=== PATIENT | male | born 1955 | race Caucasian/White ===

== ENCOUNTER 2020-01-25 21:11 | Emergency (ER) | payer BC ==
[2020-01-25] MEDS ORDERED: Adacel Vial IM ONE ×2 (21:52→22:02)
[2020-01-25] MEDS ORDERED: PERCOCET TABLET 5/325MG PO STA (21:52)
--- NOTE | 2020-01-25 21:55 | ERPHSYRPT ---
- History of Present Illness Time Seen by Provider: 01/25/20 21:31 Source: patient Exam Limitations: no limitations Patient Subjective Stated Complaint: pt states while he was mowing today, something flew out from under the mower and hit the side of his rt leg. states he was wearing long pants and did not go through his pants. states he is unable to bear weight on that leg Triage Nursing Assessment: pt alert and oriented, answers questions approp. pt back per wheelchair, transfers to stretcher per self with no weight bearing to rt leg. skin pink warm and dry. small open area with tenderness noted to rt lower leg. Physician History: 64 years old male presented in the ER with chief complaint of right lower leg injury while he was mowing the yard and something flew out and hit on the right lower leg laterally causing a small puncture this evening. Since then he is having difficulty weightbearing and pain is gradually worsening, moderate to severe intensity, sharp shooting in nature and aggravated with movements at right ankle and palpation. Denies injury anywhere else. Unsure about tetanus status. Method of Injury: direct blow Occurred: this evening Quality: constant Severity of Pain-Max: moderate Severity of Pain-Current: moderate Lower Extremities Pain: leg: right Modifying Factors: Improves With: movement Allergies/Adverse Reactions: No Known Drug Allergies Allergy (Verified 01/25/20 21:39) Home Medications: Metoprolol Tartrate 25 mg [Lopressor 25MG Tab] 25 mg PO BID 01/25/20 [ History] Hx Tetanus, Diphtheria Vaccination/Date Given: No Hx Influenza Vaccination/Date Given: No Hx Pneumococcal Vaccination/Date Given: No Immunizations Up to Date: No Travel Risk - International Travel Have you traveled outside of the country in past 3 weeks: No Have you or anyone close to you been diagnosed with or: No Do your reside in a community with a known COVID-19 case?: Yes If Yes where:: [facility] - Coronavirus Screening Has patient experienced Coronavirus symptoms: No - Review of Systems Constitutional: No Symptoms Eyes: No Symptoms Ears, Nose, & Throat: No Symptoms Respiratory: No Symptoms Cardiac: No Symptoms Musculoskeletal: Injury Skin: Skin Lesions Neurological: No Symptoms Psychological: No Symptoms Endocrine: No Symptoms Hematologic/Lymphatic: No Symptoms Immunological/Allergic: No Symptoms - Past Medical History Pertinent Past Medical History: Yes Other Medical History: pt states borderline diabetic- no meds at this time - Past Surgical History Past Surgical History: Yes Gastrointestinal: Appendectomy - Social History Smoking Status: Never smoker Exposure to second hand smoke: No Drug Use: none Patient Lives Alone: No - Nursing Vital Signs Nursing Vital Signs: Initial Vital Signs Temperature 98.1 F 01/25/20 21:18 Pulse Rate 76 01/25/20 21:18 Respiratory Rate 18 01/25/20 21:18 Blood Pressure 165/114 01/25/20 21:18 O2 Sat by Pulse Oximetry 99 01/25/20 21:18 Pain Scale Pain Intensity 9 - Physical Exam General Appearance: no apparent distress Eyes, Ears, Nose, Throat Exam: normal ENT inspection Neck Exam: normal inspection, full range of motion Cardiovascular/Respiratory Exam: normal breath sounds, regular rate/rhythm Back Exam: normal inspection Legs Exam: right leg: abrasions (Small abrasion versus puncture right lower lateral leg with erythema and tenderness around.), pain, soft tissue tenderness , swelling Knees Exam: bilateral knee: non-tender, normal inspection, normal range of motion Ankle Exam: bilateral ankle: non-tender, normal inspection, normal range of motion Foot Exam: bilateral foot: non-tender, normal inspection, normal range of motion Neuro/Tendon Exam: normal sensation, normal motor functions Mental Status Exam: alert, oriented x 3 Skin Exam: normal color SpO2 Interpretation: normal SpO2: 99 O2 Delivery: Room Air - Course Nursing assessment & vital signs reviewed: Yes Ordered Tests: Active Orders 24 hr Category Date Time Status Isolation, Initiate & Maintain Q12H Care 01/25/20 21:34 Active LOWER LEG Stat Exams 01/25/20 21:36 Taken Medication Summary Discontinued Medications Generic Name Dose Route Start Last Admin Trade Name Freq PRN Reason Stop Dose Admin Cefazolin Sodium Confirm 01/25/20 22:29 Kefzol 1 Gm Administered 01/25/20 22:30 Dose 2 g .ROUTE .STK-MED ONE Diphtheria/Tetanus/Acell Pertussis 0.5 ml 01/25/20 21:52 01/25/20 22:11 Adacel Vial IM 01/25/20 21:53 0.5 ml .ONCE ONE Administration Diphtheria/Tetanus/Acell Pertussis Confirm 01/25/20 22:02 Adacel Vial Administered 01/25/20 22:03 Dose 0.5 ml IM .STK-MED ONE Oxycodone/Acetaminophen 2 tab 01/25/20 21:52 01/25/20 22:04 Percocet Tablet 5/325mg PO 01/25/20 21:53 2 tab STAT STA Administration Oxycodone/Acetaminophen Confirm 01/25/20 22:02 Percocet Tablet 5/325mg Administered 01/25/20 22:03 Dose 2 tab .ROUTE .STK-MED ONE - Progress Progress: pain not gone completely, re-examined Progress Note: 01/25/20 22:33 64 years old is evaluated for injury to right lower leg. X-rays did not show any fracture dislocation but does have a foreign body which went in through a puncture hole. Tetanus is updated. I have given him local anesthesia and tried to extract foreign body but could not. I have given him a dose of Ancef 2 g here. We will continue with Augmentin to go home. Patient is advised to follow-up with [facility] Ortho clinic in the morning for further evaluation. Discussed with patient about risk of infection and symptoms/signs of worsening needing return to ER immediately which he seems understanding. Counseled pt/family regarding: diagnosis, need for follow-up, rad results - Departure Departure Disposition: Home Clinical Impression: Puncture wound of leg excluding thigh Qualifiers: Encounter type: initial encounter Laterality: right Qualified Code(s): S81.831A - Puncture wound without foreign body, right lower leg, initial encounter Foreign body of leg Qualifiers: Encounter type: initial encounter Laterality: right Qualified Code(s): S80.851A - Superficial foreign body, right lower leg, initial encounter Condition: Stable Critical Care Time: No Referrals: ISELA PIPER [Primary Care Provider] - Follow Up with PCP (1-2 days) Instructions: Foreign Body in Skin (DC), Wound Care (DC) Additional Instructions: Follow-up with [facility] Ortho clinic in [place] early in the morning. Take pain medications as needed. Continue with antibiotics. Return to ER for excruciating pain, swelling, redness, fever chills or discharge from puncture site. Keep wound clean. Prescriptions: Amox Tr/Potass Clav. 875 mg [Augmentin 875-125 Tablet] 875 mg PO BID #14 tablet Hydrocodone/Acetaminophen [[place] 7.5-325 Tablet] 1 each PO Q4-6HPRN PRN 3 Days # 12 tablet MDD 5 PRN Reason: Pain
[2020-01-25] MEDS ORDERED: PERCOCET TABLET 5/325MG ONE (22:02)
[2020-01-25] MEDS ORDERED: KEFZOL 1 GM ONE (22:29)
[2020-01-25] MEDS ORDERED: KEFZOL 1 GM IM ONE (22:41)
[2020-01-25] MEDS ORDERED: NORCO 5/325 MG PO ONE (23:04)
[2020-01-25] MEDS ORDERED: NORCO 5/325 MG ONE (23:07)
[2020-01-25 23:36] VITALS: BP 144/94; PULSE 78; O2SAT 96
--- NOTE | 2020-01-26 09:37 | XRAY ---
Indication: Puncture wound following lawnmower injury. Comparison: None 2 views of the right lower leg demonstrates tiny distal tibia shaft cortical fracture laterally, site of puncture wound. Elsewhere small tibial tuberosity spurring and small round posterior medial knee heterotopic ossifications. No other bony, articular, or soft tissue abnormalities.
== END 2020-01-25 23:30 | disposition home or self-care (01) ==
LOC: ED 21:11
DX: S81.831A Puncture wound without foreign body, right lower leg, initial encounter (principal); S80.851A Superficial foreign body, right lower leg, initial encounter; W20.8XXA Other cause of strike by thrown, projected or falling object, initial encounter; Y93.H9 Activity, other involving exterior property and land maintenance, building and construction; R73.03 Prediabetes; Z79.899 Other long term (current) drug therapy
CPT/HCPCS: 73590; 90471; 90715; 96372; 99284; J0690; A9270-GY

== ENCOUNTER 2020-06-03 05:52 | Day surgery (SDC) | payer MEDICARE ==
[2020-06-03] MEDS ORDERED: Lactated Ringers 1,000 ML IV SCH (06:30)
[2020-06-03] MEDS ORDERED: DIPRIVAN 200 MG/20 ML IV ONE ×2 (06:44)
[2020-06-03] MEDS ORDERED: TRANDATE 100 MG/20 ML MDV FOR DRIP IV ONE (06:54)
[2020-06-03] MEDS ORDERED: TRANDATE 100MG/20 ML MDV IV ONE (06:58)
[2020-06-03 07:56] VITALS: O2SAT 97
[2020-06-03 08:19] VITALS: BP 142/82; PULSE 58
--- NOTE | 2020-06-04 08:07 | OP ---
SURGERY DATE/TIME: 06/03/2020 0705 PREOPERATIVE DIAGNOSIS: Screening exam. POSTOPERATIVE DIAGNOSIS: Enlarged prostate, normal colon. PROCEDURE: Colonoscopy. SURGEON: Dr. Luna. ANESTHESIA: MAC. Medications given by anesthesia department. HISTORY: The patient is a 65 year old white male patient now presenting for colonoscopic evaluation. The patient reports he had a normal colon exam 12 years ago. He is here now for screening evaluation. The patient was appraised of the risks of the procedure including the risk of perforation, phlebitis, untoward reaction to medication, bleeding and missed lesions. The patient verbalized his understanding and desired to have the procedure performed. DESCRIPTION OF PROCEDURE: The patient was given the medications by the anesthesia department. He had continuous pulse oximetry, ECG monitoring, intermittent blood pressure monitoring and tidal CO2 monitoring during the examination. He was placed in the left lateral decubitus position. A digital rectal examination was performed and revealed normal anal sphincter tone, no masses and enlarged prostate that was smooth but firm. The flexible Olympus pediatric colonoscope was used to intubate the rectum. A view of the colon was developed sequentially to the cecum. Upon insertion and withdrawal, including a retroflex view in the rectum, no mucosal lesions were encountered. The scope was removed from the patient who tolerated the procedure well and was sent back to OP recovery in good condition. The prep was noted to be fair to good.
== END 2020-06-03 08:25 | disposition home or self-care (01) ==
LOC: SDC 05:52
PROVIDERS: ATTEND Family Medicine
DX: Z12.11 Encounter for screening for malignant neoplasm of colon (principal); N40.0 Benign prostatic hyperplasia without lower urinary tract symptoms; I10 Essential (primary) hypertension; E11.9 Type 2 diabetes mellitus without complications; Z79.899 Other long term (current) drug therapy
CPT/HCPCS: 36415; 82962; 84153; G0121; J2704

== ENCOUNTER 2023-09-21 21:59 | Emergency (ER) | payer MEDICARE ==
[2023-09-21 22:26] VITALS: TEMP 97.6
[2023-09-21] MEDS ORDERED: TORAdol 30 mg Injection IM ONE (22:37)
[2023-09-21] MEDS ORDERED: TORAdol 30 mg Injection ONE (22:42)
--- NOTE | 2023-09-21 22:44 | ERPHSYRPT ---
- History of Present Illness Time Seen by Provider: 09/21/23 22:15 Source: patient Exam Limitations: no limitations Patient Subjective Stated Complaint: pt states that he bowling when he felt sudden pain in his rt arm Triage Nursing Assessment: pt ambulated into the er; pt is axo x4; c/o rt upper arm pain; pt states 7/10 pain; pt has deformity to rt bicep; tenderness to rt bicep; strong rt radial pulse; good cap refill to RUE; hypertensive; no respiratory distress present; skin PDW Physician History: Patient is a 68-year-old male presents to our ED for evaluation of pain to his right bicep. Patient states he was bowling using his dominant right hand when he felt a pop followed by sudden intense pain to his right bicep muscle. Pain is currently rated 7 out of 10. Patient currently having difficulty to flex his right elbow. No chest pain or shortness of breath. No nausea vomiting or diaphoresis. No blunt trauma. Patient believes he injured his right bicep. No bony tenderness. Patient voices no other complaints or concerns at this time. Injury occurred just prior to arrival Portions of this note were created with voice recognition technology. There may be grammatical, spelling, punctuation or sound alike errors Occurred: just prior to arrival Method of Injury: sports injury Quality: constant Severity of Pain-Max: moderate Severity of Pain-Current: mild Extremities Pain Location: elbow: right Modifying Factors: Improves With: movement Associated Symptoms: none Allergies/Adverse Reactions: No Known Drug Allergies Allergy (Verified 09/21/23 22:09) Home Medications: Metoprolol Tartrate 25 mg [Lopressor 25MG Tab] 25 mg PO BID 01/25/20 [History] Atorvastatin Calcium 20 mg PO DAILY 09/21/23 [History] Glyburide Micronized [Glynase] 3 mg PO DAILY 09/21/23 [History] Tamsulosin HCl 0.4 mg [Flomax 0.4 MG] 0.4 mg PO DAILY 09/21/23 [History] Hx Tetanus, Diphtheria Vaccination/Date Given: Yes Hx Influenza Vaccination/Date Given: No Hx Pneumococcal Vaccination/Date Given: No Immunizations Up to Date: Yes Travel Risk - International Travel Have you traveled outside of the country in past 3 weeks: No - Coronavirus Screening Are you exhibiting any of the following symptoms?: No Close contact with a COVID-19 positive Pt in past 14-21 Days: No - Vaccine Status Have you recieved a Covid-19 vaccination: Yes [employer]: Moderna - Vaccination Dates Date of 2cond Vaccination (if applicable): 2020 - Review of Systems Constitutional: No Symptoms, No Fever, No Chills Eyes: No Symptoms Ears, Nose, & Throat: No Symptoms Respiratory: No Symptoms, No Cough, No Dyspnea Cardiac: No Symptoms, No Chest Pain, No Edema, No Syncope Abdominal/Gastrointestinal: No Symptoms, No Abdominal Pain, No Nausea, No Vomiting, No Diarrhea Genitourinary Symptoms: No Symptoms, No Dysuria Musculoskeletal: No Symptoms, No Back Pain, No Neck Pain Skin: No Symptoms, No Rash Neurological: No Symptoms, No Dizziness, No Focal Weakness, No Sensory Changes Psychological: No Symptoms Endocrine: No Symptoms Hematologic/Lymphatic: No Symptoms Immunological/Allergic: No Symptoms All Other Systems: Reviewed and Negative - Past Medical History Pertinent Past Medical History: Yes Cardiac History: High Cholesterol, Hypertension Male Reproductive Disorders: Prostate Problems Other Medical History: pt states borderline diabetic- no meds at this time - Past Surgical History Past Surgical History: Yes Gastrointestinal: Appendectomy Other Surgical History: colonoscopy - Social History Smoking Status: Never smoker Exposure to second hand smoke: No Drug Use: none Patient Lives Alone: No - Nursing Vital Signs Nursing Vital Signs: Initial Vital Signs Temperature 97.6 F 09/21/23 22:05 Pulse Rate 100 H 09/21/23 22:05 Respiratory Rate 16 09/21/23 22:05 Blood Pressure 178/107 09/21/23 22:05 O2 Sat by Pulse Oximetry 98 09/21/23 22:05 Pain Scale Pain Intensity 6 - Physical Exam General Appearance: no apparent distress, alert Eyes, Ears, Nose, Throat Exam: moist mucous membranes Neck Exam: normal inspection, non-tender, supple, full range of motion Cardiovascular/Respiratory Exam: chest non-tender, normal breath sounds, regular rate/rhythm, no respiratory distress Abdominal Exam: non-tender, soft, No guarding Back Exam: normal inspection, normal range of motion, No vertebral tenderness Shoulder Exam: normal inspection, non-tender, no evidence of injury, normal ROM Elbow/Forearm Exam: limited ROM (Elbow flexion limited. Patient's bicep appears to be curled up proximally. Difficult to palpate biceps tendon. The involved extremity is neurovascular intact distally. Compartments are soft cap refill less than 2 seconds.) Wrist Exam: normal inspection, non-tender, no evidence of injury, normal ROM Hand Exam: normal inspection, non-tender, no evidence of injury, normal ROM Neuro/Tendon Exam: normal sensation, normal motor functions Mental Status Exam: alert, oriented x 3, cooperative Skin Exam: normal color, warm, dry SpO2 Interpretation: normal SpO2: 94 O2 Delivery: Room Air - Course Nursing assessment & vital signs reviewed: Yes Ordered Tests: Active Orders 24 hr Category Date Time Status EKG-ER Only STAT Care 09/21/23 22:37 Active Sling Application STAT Care 09/21/23 22:38 Active Medication Summary Discontinued Medications Generic Name Dose Route Start Last Admin Trade Name Nishq PRN Reason Stop Dose Admin Ketorolac Tromethamine 30 mg 09/21/23 22:37 09/21/23 22:46 Ketorolac Tromethamine 30 Mg/Ml Inj IM 09/21/23 22:38 30 mg STAT ONE Administration Ketorolac Tromethamine Confirm 09/21/23 22:42 Ketorolac Tromethamine 30 Mg/Ml Inj Administered 09/21/23 22:43 [facility] - Progress Progress: improved Progress Note: 68-year-old male presents to our ED for evaluation of acute onset pain right bicep which occurred while actively bowling utilizing his right arm. Pain localized to the bicep. Patient states pain worse with flexion. Difficult to palpate biceps tendon. No bony tenderness. No indication for x-ray at this time. Patient received Toradol for pain control. Right upper extremity placed in a sling. Patient referred to orthopedic clinic for further evaluation and treatment. Prescription for Toradol forwarded to patient's pharmacy. Pain improved. Patient is ready for discharge. Portions of this note were created with voice recognition technology. There may be grammatical, spelling, punctuation or sound alike errors Complexity problem addressed is low acute uncomplicated No critical care time Complexity of data reviewed and analyzed is moderate. Dr. Rivera independently reviewed the screening EKG. Risk of complication and or risk morbidity/mortality patient management is moderate. Prescription for Toradol forwarded to patient's pharmacy. Vital stable. Time spent to discharge patient is approximately 15 minutes. Plan of care established for shared decision making. No social determinants of health present impede follow-up. Orthopedic referral provided to patient. 09/21/23 22:49 Counseled pt/family regarding: diagnosis, need for follow-up - Departure Departure Disposition: Home Clinical Impression: Biceps muscle tear Condition: Stable Critical Care Time: No Referrals: BRENNAN HURST [Primary Care Provider] - Follow up/PCP as directed Instructions: Biceps Tendon Rupture Additional Instructions: Discharge/Care Plan GOODMANBRENDA Shi was seen on 09/21/23 in the Emergency Room. The patient was counseled regarding Diagnosis,Lab results, Imaging studies, need for follow up a nd when to return to the Emergency Room. Prescriptions given: Discharge Note I have spoken with the patient and/or caregivers. I have explained the patient's condition, diagnosis and treatment plan based on the information available to me at this time. I have answered the patient's and/or caregiver's questions and addressed any concerns. The patient and/or caregivers have as good understanding of the patient's diagnosis, condition and treatment plan as can be expected at this point. The vital signs have been stable. The patient's condition is stable and appropriate for discharge from the emergency department. The patient will pursue further outpatient evaluation with the primary care physician or other designated or consulting physician as outlined in the discharge instructions. The patient and/or caregivers are agreeable to this plan of care and follow-up instructions have been explained in detail. The patient and/or caregivers have received these instruction. The patient/and or caregivers are aware that any significant change in condition or worsening of symptoms should prompt an immediate return to this or the closest emergency department or call 911. Prescriptions: Ketorolac Trometh 10 mg Tab [TORAdol 10 MG TABLET] 10 mg PO TID 5 Days #15 tablet Outpatient Orders: Ortho Referral Time Frame: 1 Day, Facility: [facility]. Hosp, Location: ORTHO CLINIC
[2023-09-21 23:00] VITALS: BP 169/113; PULSE 100; RESP 18; O2SAT 98
== END 2023-09-21 23:03 | disposition home or self-care (01) ==
LOC: ED 21:59
DX: S46.211A Strain of muscle, fascia and tendon of other parts of biceps, right arm, initial encounter (principal); X50.0XXA Overexertion from strenuous movement or load, initial encounter; Y93.54 Activity, bowling; Y92.39 Other specified sports and athletic area as the place of occurrence of the external cause; E78.5 Hyperlipidemia, unspecified; I10 Essential (primary) hypertension; Z79.84 Long term (current) use of oral hypoglycemic drugs; Z79.899 Other long term (current) drug therapy
CPT/HCPCS: 93005; 96372; 99283; J1885